=== PATIENT | male | born 1945 | race Caucasian/White ===

== ENCOUNTER 2016-10-04 15:28 | Emergency (ER) | payer MEDICARE, OTHER ==
[~2016-10-04] VITALS: Ht 182.9 cm; Wt 105.0 kg
[2016-10-04 15:42] VITALS: BP 128/67
[2016-10-04 16:05] LABS: HEMOGLOBIN 13.2 g/dL (13.7-18.0)
[2016-10-04 16:16] LABS: BLOOD UREA NITROGEN 15 mg/dL (7-18)
== END 2016-10-04 17:55 | disposition home or self-care (01) ==
LOC: ED 17:53
DX: I82.432 Acute embolism and thrombosis of left popliteal vein (principal); M54.32 Sciatica, left side
CPT/HCPCS: 36415; 80048; 82040; 85025; 85610; 85730; 99284

== ENCOUNTER → 2016-10-04 | Outpatient (CLI) | payer MEDICARE, OTHER ==
[~2016-10-04] MED LIST: FLUT10SP NS; IRON1TAB54 PO; LISI40TA PO; OMEP-110 PO; SIMCOR PO; SIMV20TA3 PO; SITA1TAB PO; TAMS0.4C2 PO; TEST1.25 TP; TRAM50TA2 PO; TRAZ100T15 PO
== END | disposition home or self-care (01) ==
LOC: CVU 12:36
PROVIDERS: ATTEND Nurse Practitioner Family
DX: I35.8 Other nonrheumatic aortic valve disorders (principal); I09.9 Rheumatic heart disease, unspecified; I07.1 Rheumatic tricuspid insufficiency; I34.0 Nonrheumatic mitral (valve) insufficiency; I37.1 Nonrheumatic pulmonary valve insufficiency; M79.89 Other specified soft tissue disorders; E11.9 Type 2 diabetes mellitus without complications
CPT/HCPCS: 93306; 93970

== ENCOUNTER → 2018-11-12 | Outpatient (CLI) | payer MEDICARE, OTHER ==
[~2018-11-12] MED LIST changes: +TRAZ-137 PO; -TRAZ100T15 PO
== END | disposition home or self-care (01) ==
LOC: CFH 14:42
PROVIDERS: ATTEND Internal Medicine Cardiovascular Disease
DX: I08.3 Combined rheumatic disorders of mitral, aortic and tricuspid valves (principal); I10 Essential (primary) hypertension; E78.5 Hyperlipidemia, unspecified; R06.02 Shortness of breath; Z87.891 Personal history of nicotine dependence
CPT/HCPCS: 93306